=== PATIENT | male | born 1955 | race Hispanic/Latino ===

== ENCOUNTER 2022-01-13 08:45 | Outpatient (CLI) | payer SELFPAY | END 2022-01-13 08:46 | disposition home or self-care (01) | LOC: CSHWCC 08:45 | PROVIDERS: ATTEND Nurse Practitioner Family | DX: T87.89 Other complications of amputation stump (principal) | CPT/HCPCS: 99203; G0463 ==

== ENCOUNTER 2022-01-21 10:32 | Outpatient (CLI) | payer SELFPAY | END 2022-01-21 10:33 | disposition home or self-care (01) | LOC: CSHWCC 10:32 | PROVIDERS: ATTEND Nurse Practitioner Family | DX: T87.89 Other complications of amputation stump (principal) ==

== ENCOUNTER 2022-01-27 09:00 | Inpatient (IN) | payer MEDICARE, SELFPAY ==
[2022-01-27 09:35] LABS: #Basophils 0.1 10x3/uL (0.0-0.2); #Eosinphils 0.1 10x3/uL (0.0-0.5); #Monocytes 0.7 10x3/uL (0.0-1.1); #Neutrophils 9.6 10x3/uL (1.5-8.4); %Basophils 0.7 % (0.0-2.0); %Eosinophils 0.7 % (0.0-6.0); %Lymphocytes 30.1 % (18.0-47.0); %Monocytes 4.5 % (0.0-10.0); %Neutrophils 63.3 % (40.0-75.0); Hemoglobin 12.5 g/dL (13.5-17.5); Mean Corpuscular HGB CONC 33.2 g/dL (32.0-36.0); Mean Corpuscular Hemoglobin 29.1 pg (27.0-33.0); Mean Corpuscular Volume 87.7 fl (81.2-95.1); Platelet Count 455 10x3/uL (150-450); RBC Distribution Width 14.3 % (11.5-14.5); White Blood Cell (WBC) Count 15.2 10x3/uL (3.5-10.5)
[2022-01-27 09:43] LABS: ALT (SGPT) 25 U/L (8-55); AST (SGOT) 20 U/L (5-34); Albumin 3.5 g/dL (3.4-4.8); Alkaline Phosphatase 174 U/L (40-110); Anion Gap 18 mmol/L (10-20); BUN (Urea Nitrogen) 16 mg/dL (8.4-25.7); Bilirubin, Total 0.7 mg/dL (0.2-1.2); Calc. Creatinine Clearance 0 mL/min (70-130); Calcium 10.3 mg/dL (7.8-10.44); Carbon Dioxide 19 mmol/L (23-31); Chloride 103 mmol/L (98-107); Estimated GFR 96; Globulin 4.7 g/dL (2.4-3.5); Glucose 179 mg/dL (80-115); Protein, Total 8.2 g/dL (5.8-8.1); Sodium 136 mmol/L (136-145)
[2022-01-27] MEDS ORDERED: Cefepime 2 GM VIAL ONE (10:06)
[2022-01-27 10:31] LABS: Bilirubin Neg (Negative); Blood, Urine 25 (Negative); Clarity Clear (Clear); Glucose, Urine (Dipstick) Normal (Negative); Ketone, Urine Negative (Negative); Leukocyte Negative (Negative); Nitrite Negative (Negative); Protein, Urine (Dipstick) 30 mg/dl (Neg-Trace)
[2022-01-27 10:44] LABS: Bacteria/HPF Rare-Few HPF (None Seen); Mucous/LPF 1+ LPF (<2+); RBC/HPF 0-3 HPF (0-3); Squamous Epithelial None Seen HPF (0-3); WBC/HPF 0-3 HPF (0-3)
[2022-01-27 11:11] LABS: SARS-CoV-2 NAA Rapid Test Not Detected (NotDetected)
[2022-01-27] MEDS ORDERED: Dextrose 50% Abboject 50 ML SYRINGE SLOW IVP PRN (12:11)
[2022-01-27] MEDS ORDERED: Fentanyl 100 MCG/2 ML VIAL ONE (12:11)
[2022-01-27] MEDS: HYDROcodone/Acetaminophen 5/325 mg Tablet PO PRN ×2 (13:59→22:17)
[2022-01-27] MEDS ORDERED: Piperacillin/Tazobactam 3.375 GM in Sodium Chloride 0.9% 100 ML IVPB SCH (14:00)
[2022-01-27] MEDS: Nicotine 14 MG PATCH TD SCH (14:07)
[2022-01-27] MEDS ORDERED: Iopamidol 370 76% 100 ML VIAL ONE (14:45)
[2022-01-27 16:22] VITALS: BMI 19.9
[2022-01-27] MEDS: Morphine 2 MG/ML VIAL SLOW IVP PRN (19:04)
[2022-01-27] MEDS: Sodium Chloride 0.9% 1,000 ML IV SCH (19:04)
[2022-01-27] MEDS: Piperacillin/Tazobactam 3.375 GM in Sodium Chloride 0.9% 100 ML IVPB SCH (19:20)
[2022-01-27] MEDS: VANCOMYCIN HCL IVPB SCH (22:12)
[2022-01-27] MEDS: SODIUM CHLORIDE 0.9% IVPB SCH (22:12)
[2022-01-27] MEDS: Heparin 5,000 UNITS/ML VIAL SC SCH (22:13)
[2022-01-27] MEDS: Famotidine 20 MG TAB PO SCH (22:17)
[2022-01-27] MEDS: Lantus 1000 UNITS/10 ML VIAL SC SCH (23:34)
[2022-01-28] MEDS: Piperacillin/Tazobactam 3.375 GM in Sodium Chloride 0.9% 100 ML IVPB SCH ×3 (03:13→17:45)
[2022-01-28] MEDS: Morphine 2 MG/ML VIAL SLOW IVP PRN ×3 (03:32→22:19)
[2022-01-28] MEDS: Sodium Chloride 0.9% 1,000 ML IV SCH ×2 (03:39→13:13)
[2022-01-28 05:07] LABS: #Basophils 0.1 10x3/uL (0.0-0.2); #Eosinphils 0.2 10x3/uL (0.0-0.5); #Monocytes 0.5 10x3/uL (0.0-1.1); #Neutrophils 5.4 10x3/uL (1.5-8.4); %Basophils 0.9 % (0.0-2.0); %Lymphocytes 29.1 % (18.0-47.0); %Monocytes 5.6 % (0.0-10.0); %Neutrophils 61.9 % (40.0-75.0); Hemoglobin 10.3 g/dL (13.5-17.5); Mean Corpuscular HGB CONC 32.2 g/dL (32.0-36.0); Mean Corpuscular Hemoglobin 28.7 pg (27.0-33.0); Mean Corpuscular Volume 89.1 fl (81.2-95.1); Mean Platelet Volume 9.4 fl (7.4-10.4); Platelet Count 359 10x3/uL (150-450); Red Blood Cell (RBC) Count 3.59 10x6/uL (4.32-5.72); White Blood Cell (WBC) Count 8.7 10x3/uL (3.5-10.5)
[2022-01-28 05:29] LABS: Anion Gap 13 mmol/L (10-20); BUN (Urea Nitrogen) 14 mg/dL (8.4-25.7); Calc. Creatinine Clearance 76 mL/min (70-130); Carbon Dioxide 22 mmol/L (23-31); Chloride 109 mmol/L (98-107); Estimated GFR 101; Glucose 97 mg/dL (80-115); Potassium 3.9 mmol/L (3.5-5.1); Sodium 140 mmol/L (136-145)
[2022-01-28] MEDS: HYDROcodone/Acetaminophen 5/325 mg Tablet PO PRN ×2 (09:50→17:44)
[2022-01-28] MEDS: Famotidine 20 MG TAB PO SCH ×2 (09:51→21:35)
[2022-01-28] MEDS: Heparin 5,000 UNITS/ML VIAL SC SCH ×2 (09:53→21:34)
[2022-01-28] MEDS: SODIUM CHLORIDE 0.9% IVPB SCH ×2 (09:53→21:35)
[2022-01-28] MEDS: VANCOMYCIN HCL IVPB SCH ×2 (09:53→21:35)
[2022-01-28] MEDS: Nicotine 14 MG PATCH TD SCH (15:19)
[2022-01-28 21:28] LABS: Vancomycin, Trough 18.1 ug/mL
[2022-01-28] MEDS: Atorvastatin Calcium 40 MG TAB PO SCH (21:34)
[2022-01-28] MEDS: Lantus 1000 UNITS/10 ML VIAL SC SCH (21:36)
[2022-01-29] MEDS: Piperacillin/Tazobactam 3.375 GM in Sodium Chloride 0.9% 100 ML IVPB SCH ×3 (02:54→18:10)
[2022-01-29] MEDS: Sodium Chloride 0.9% 1,000 ML IV SCH ×2 (03:28→18:10)
[2022-01-29] MEDS: Morphine 2 MG/ML VIAL SLOW IVP PRN ×2 (04:26→10:27)
[2022-01-29 05:11] LABS: Anion Gap 12 mmol/L (10-20); BUN (Urea Nitrogen) 9 mg/dL (8.4-25.7); Calc. Creatinine Clearance 82 mL/min (70-130); Calcium 8.7 mg/dL (7.8-10.44); Carbon Dioxide 22 mmol/L (23-31); Chloride 111 mmol/L (98-107); Estimated GFR 103; Glucose 101 mg/dL (80-115); Potassium 3.6 mmol/L (3.5-5.1); Sodium 141 mmol/L (136-145)
[2022-01-29 05:25] LABS: #Basophils 0.1 10x3/uL (0.0-0.2); #Eosinphils 0.2 10x3/uL (0.0-0.5); #Monocytes 0.4 10x3/uL (0.0-1.1); #Neutrophils 4.7 10x3/uL (1.5-8.4); %Basophils 0.7 % (0.0-2.0); %Eosinophils 1.8 % (0.0-6.0); %Lymphocytes 34.3 % (18.0-47.0); %Monocytes 5.4 % (0.0-10.0); %Neutrophils 57.4 % (40.0-75.0); Hemoglobin 9.6 g/dL (13.5-17.5); Mean Corpuscular Hemoglobin 29.5 pg (27.0-33.0); Mean Corpuscular Volume 86.8 fl (81.2-95.1); Mean Platelet Volume 9.9 fl (7.4-10.4); Platelet Count 333 10x3/uL (150-450); RBC Distribution Width 14.3 % (11.5-14.5); Red Blood Cell (RBC) Count 3.25 10x6/uL (4.32-5.72); White Blood Cell (WBC) Count 8.2 10x3/uL (3.5-10.5)
[2022-01-29] MEDS: Heparin 5,000 UNITS/ML VIAL SC SCH ×2 (08:55→21:23)
[2022-01-29] MEDS: HYDROcodone/Acetaminophen 5/325 mg Tablet PO PRN ×3 (08:56→21:29)
[2022-01-29] MEDS: Famotidine 20 MG TAB PO SCH ×2 (08:56→21:23)
[2022-01-29] MEDS: Aspirin 81 mg Enteric Coated Tablet PO SCH (08:56)
[2022-01-29] MEDS: Vancomycin HCl 1 GM in Sodium Chloride 0.9% 250 ML 250 ML IVPB SCH ×2 (08:57→21:27)
[2022-01-29] MEDS: Nicotine 14 MG PATCH TD SCH (13:43)
[2022-01-29] MEDS: Lantus 1000 UNITS/10 ML VIAL SC SCH (21:10)
[2022-01-29] MEDS: Atorvastatin Calcium 40 MG TAB PO SCH (21:22)
[2022-01-30] MEDS: Piperacillin/Tazobactam 3.375 GM in Sodium Chloride 0.9% 100 ML IVPB SCH ×2 (02:48→11:40)
[2022-01-30] MEDS: Morphine 2 MG/ML VIAL SLOW IVP PRN ×4 (03:59→22:13)
[2022-01-30 04:00] LABS: #Basophils 0.1 10x3/uL (0.0-0.2); #Eosinphils 0.2 10x3/uL (0.0-0.5); #Monocytes 0.4 10x3/uL (0.0-1.1); #Neutrophils 3.3 10x3/uL (1.5-8.4); %Basophils 0.9 % (0.0-2.0); %Eosinophils 3.2 % (0.0-6.0); %Lymphocytes 41.9 % (18.0-47.0); %Monocytes 5.8 % (0.0-10.0); %Neutrophils 47.8 % (40.0-75.0); Hemoglobin 9.4 g/dL (13.5-17.5); Mean Corpuscular HGB CONC 32.4 g/dL (32.0-36.0); Mean Corpuscular Hemoglobin 28.8 pg (27.0-33.0); Mean Platelet Volume 10.1 fl (7.4-10.4); Platelet Count 322 10x3/uL (150-450); RBC Distribution Width 14.2 % (11.5-14.5); Red Blood Cell (RBC) Count 3.26 10x6/uL (4.32-5.72); White Blood Cell (WBC) Count 6.9 10x3/uL (3.5-10.5)
[2022-01-30] MEDS: Sodium Chloride 0.9% 1,000 ML IV SCH (04:00)
[2022-01-30 04:13] LABS: Anion Gap 13 mmol/L (10-20); BUN (Urea Nitrogen) 9 mg/dL (8.4-25.7); Calc. Creatinine Clearance 86 mL/min (70-130); Calcium 8.6 mg/dL (7.8-10.44); Carbon Dioxide 21 mmol/L (23-31); Chloride 111 mmol/L (98-107); Estimated GFR 105; Glucose 113 mg/dL (80-115); Potassium 3.6 mmol/L (3.5-5.1); Sodium 141 mmol/L (136-145)
[2022-01-30] MEDS: Aspirin 81 mg Enteric Coated Tablet PO SCH (07:39)
[2022-01-30] MEDS: Heparin 5,000 UNITS/ML VIAL SC SCH ×2 (07:39→21:32)
[2022-01-30] MEDS: Famotidine 20 MG TAB PO SCH ×2 (07:39→21:30)
[2022-01-30] MEDS ORDERED: Bupivacaine PF 0.5% 30 ML VIAL ONE (07:43)
[2022-01-30] MEDS ORDERED: EPINEPHrine 1 MG/ML AMP ONE (07:43)
[2022-01-30] MEDS ORDERED: PROPOFOL 20 ML ONE (08:10)
[2022-01-30] MEDS ORDERED: Lidocaine 1% PF 5 ML VIAL ONE (08:10)
[2022-01-30] MEDS ORDERED: Ondansetron PF 4 MG/2 ML Vial ONE (08:10)
[2022-01-30] MEDS ORDERED: Fentanyl 100 MCG/2 ML VIAL ONE ×2 (08:10→08:37)
[2022-01-30] MEDS ORDERED: PHENYLEPHRINE-NS 100 MCG/ML 10 ML SYRINGE ONE (08:18)
[2022-01-30] MEDS ORDERED: ePHEDrine Sulfate 50 MG/10 ML VIAL ONE (08:21)
[2022-01-30] MEDS ORDERED: Esmolol 100 MG/10 ML VIAL ONE (10:10)
[2022-01-30] MEDS: Vancomycin HCl 1 GM in Sodium Chloride 0.9% 250 ML 250 ML IVPB SCH (10:57)
[2022-01-30] MEDS: HYDROcodone/Acetaminophen 5/325 mg Tablet PO PRN ×3 (11:42→21:30)
[2022-01-30 12:31] LABS: Hemoglobin A1c 7.8 % (4.0-6.0)
[2022-01-30] MEDS: Nicotine 14 MG PATCH TD SCH (14:43)
[2022-01-30] MEDS: Atorvastatin Calcium 40 MG TAB PO SCH (21:30)
[2022-01-30] MEDS: Amlodipine 5 MG TAB PO SCH (21:31)
[2022-01-30] MEDS: Lantus 1000 UNITS/10 ML VIAL SC SCH (21:32)
[2022-01-30 21:49] LABS: Vancomycin, Trough 22.1 ug/mL
[2022-01-31] MEDS: Morphine 2 MG/ML VIAL SLOW IVP PRN ×4 (04:08→16:50)
[2022-01-31 05:30] LABS: #Eosinphils 0.3 10x3/uL (0.0-0.5); #Monocytes 0.4 10x3/uL (0.0-1.1); #Neutrophils 3.8 10x3/uL (1.5-8.4); %Basophils 0.6 % (0.0-2.0); %Eosinophils 3.7 % (0.0-6.0); %Lymphocytes 34.4 % (18.0-47.0); %Monocytes 5.6 % (0.0-10.0); %Neutrophils 55.4 % (40.0-75.0); Mean Corpuscular HGB CONC 32.8 g/dL (32.0-36.0); Mean Corpuscular Hemoglobin 28.9 pg (27.0-33.0); Mean Corpuscular Volume 88.1 fl (81.2-95.1); Mean Platelet Volume 9.9 fl (7.4-10.4); Platelet Count 274 10x3/uL (150-450); RBC Distribution Width 14.7 % (11.5-14.5); Red Blood Cell (RBC) Count 3.11 10x6/uL (4.32-5.72); White Blood Cell (WBC) Count 6.9 10x3/uL (3.5-10.5)
[2022-01-31 05:50] LABS: ALT (SGPT) 9 U/L (8-55); AST (SGOT) 12 U/L (5-34); Albumin 2.6 g/dL (3.4-4.8); Alkaline Phosphatase 112 U/L (40-110); Anion Gap 11 mmol/L (10-20); BUN (Urea Nitrogen) 5 mg/dL (8.4-25.7); Bilirubin, Direct 0.3 mg/dL (0.1-0.3); Bilirubin, Total 0.5 mg/dL (0.2-1.2); CRP (Inflammatory) 3.11 mg/dL (= or < 0.5); Calc. Creatinine Clearance 97 mL/min (70-130); Calcium 8.6 mg/dL (7.8-10.44); Carbon Dioxide 23 mmol/L (23-31); Cardiac Risk 4.3 (Less than 4.5); Chloride 111 mmol/L (98-107); Cholesterol 73 mg/dl (< 200 Desired); Estimated GFR 109; Glucose 110 mg/dL (80-115); HDL Cholesterol 17 mg/dL (>60 Neg Risk); LDL Cholesterol, Calculated 29 mg/dL; Magnesium 1.9 mg/dL (1.6-2.6); Potassium 3.7 mmol/L (3.5-5.1); Protein, Total 5.7 g/dL (5.8-8.1); Sodium 141 mmol/L (136-145); Triglycerides 135 mg/dL (Less than 150)
[2022-01-31] MEDS: Senokot S 8.6-50 MG TAB PO PRN (07:59)
[2022-01-31] MEDS: Aspirin 81 mg Enteric Coated Tablet PO SCH (07:59)
[2022-01-31] MEDS: Heparin 5,000 UNITS/ML VIAL SC SCH ×2 (07:59→20:14)
[2022-01-31] MEDS: Famotidine 20 MG TAB PO SCH ×2 (07:59→20:09)
[2022-01-31] MEDS: Lisinopril 20 MG TAB PO SCH (07:59)
[2022-01-31] MEDS: Hydrochlorothiazide 25 MG TAB PO SCH (07:59)
[2022-01-31] MEDS ORDERED: [UNRECOGNIZED DRUG - OTHER] PO SCH (09:00)
[2022-01-31] MEDS ORDERED: HYDROCHLOROTHIAZIDE PO SCH (09:00)
[2022-01-31] MEDS ORDERED: LISINOPRIL PO SCH (09:00)
[2022-01-31] MEDS: HYDROcodone/Acetaminophen 5/325 mg Tablet PO PRN ×2 (10:01→20:07)
[2022-01-31] MEDS: Nicotine 14 MG PATCH TD SCH (14:50)
[2022-01-31] MEDS: Atorvastatin Calcium 40 MG TAB PO SCH (20:09)
[2022-01-31] MEDS: Amlodipine 5 MG TAB PO SCH (20:14)
[2022-01-31] MEDS: Lantus 1000 UNITS/10 ML VIAL SC SCH (20:22)
[2022-02-01] MEDS: HYDROcodone/Acetaminophen 5/325 mg Tablet PO PRN ×3 (00:19→20:04)
[2022-02-01 05:03] LABS: #Basophils 0.1 10x3/uL (0.0-0.2); #Eosinphils 0.3 10x3/uL (0.0-0.5); #Monocytes 0.5 10x3/uL (0.0-1.1); #Neutrophils 4.1 10x3/uL (1.5-8.4); %Basophils 0.7 % (0.0-2.0); %Eosinophils 3.2 % (0.0-6.0); %Lymphocytes 40.3 % (18.0-47.0); %Monocytes 5.5 % (0.0-10.0); %Neutrophils 49.8 % (40.0-75.0); Hemoglobin 9.8 g/dL (13.5-17.5); Mean Corpuscular HGB CONC 32.8 g/dL (32.0-36.0); Mean Corpuscular Hemoglobin 29.1 pg (27.0-33.0); Mean Corpuscular Volume 88.7 fl (81.2-95.1); Mean Platelet Volume 10.5 fl (7.4-10.4); Platelet Count 312 10x3/uL (150-450); RBC Distribution Width 14.6 % (11.5-14.5); Red Blood Cell (RBC) Count 3.37 10x6/uL (4.32-5.72); White Blood Cell (WBC) Count 8.3 10x3/uL (3.5-10.5)
[2022-02-01 05:31] LABS: Anion Gap 14 mmol/L (10-20); BUN (Urea Nitrogen) 7 mg/dL (8.4-25.7); Calc. Creatinine Clearance 89 mL/min (70-130); Calcium 9.2 mg/dL (7.8-10.44); Carbon Dioxide 23 mmol/L (23-31); Chloride 107 mmol/L (98-107); Estimated GFR 106; Glucose 110 mg/dL (80-115); Magnesium 2.1 mg/dL (1.6-2.6); Potassium 3.5 mmol/L (3.5-5.1); Sodium 140 mmol/L (136-145)
[2022-02-01] MEDS: Heparin 5,000 UNITS/ML VIAL SC SCH ×2 (09:21→20:03)
[2022-02-01] MEDS: Hydrochlorothiazide 25 MG TAB PO SCH (09:21)
[2022-02-01] MEDS: Lisinopril 20 MG TAB PO SCH (09:21)
[2022-02-01] MEDS: Famotidine 20 MG TAB PO SCH ×2 (09:21→20:06)
[2022-02-01] MEDS: Aspirin 81 mg Enteric Coated Tablet PO SCH (09:21)
[2022-02-01] MEDS: oxyCODONE 5 MG TAB PO PRN ×2 (12:19→17:26)
[2022-02-01] MEDS: Nicotine 14 MG PATCH TD SCH (14:57)
[2022-02-01] MEDS: Atorvastatin Calcium 40 MG TAB PO SCH (20:04)
[2022-02-01] MEDS: Amlodipine 5 MG TAB PO SCH (20:06)
[2022-02-01] MEDS: Lantus 1000 UNITS/10 ML VIAL SC SCH (20:07)
[2022-02-02] MEDS: Senokot S 8.6-50 MG TAB PO PRN ×2 (05:50→08:47)
[2022-02-02] MEDS: HYDROcodone/Acetaminophen 5/325 mg Tablet PO PRN ×3 (05:53→20:06)
[2022-02-02] MEDS: Heparin 5,000 UNITS/ML VIAL SC SCH ×2 (08:46→20:06)
[2022-02-02] MEDS: Aspirin 81 mg Enteric Coated Tablet PO SCH (08:48)
[2022-02-02] MEDS: Hydrochlorothiazide 25 MG TAB PO SCH (08:48)
[2022-02-02] MEDS: Famotidine 20 MG TAB PO SCH ×2 (08:48→20:06)
[2022-02-02] MEDS: Lisinopril 20 MG TAB PO SCH (08:48)
[2022-02-02] MEDS: Nicotine 14 MG PATCH TD SCH (13:43)
[2022-02-02] MEDS: Senokot S 8.6-50 MG TAB PO SCH (20:06)
[2022-02-02] MEDS: Polyethylene Glycol 3350 17 GM Packet PO SCH (20:06)
[2022-02-02] MEDS: Atorvastatin Calcium 40 MG TAB PO SCH (20:06)
[2022-02-02] MEDS: Amlodipine 5 MG TAB PO SCH (20:08)
[2022-02-02] MEDS: Lantus 1000 UNITS/10 ML VIAL SC SCH (20:17)
[2022-02-03] MEDS: Ondansetron ODT 4 MG TAB PO PRN (07:09)
[2022-02-03] MEDS: Senokot S 8.6-50 MG TAB PO SCH ×2 (08:40→21:03)
[2022-02-03] MEDS: HYDROcodone/Acetaminophen 5/325 mg Tablet PO PRN (08:40)
[2022-02-03] MEDS: Polyethylene Glycol 3350 17 GM Packet PO SCH ×2 (08:40→21:03)
[2022-02-03] MEDS: Hydrochlorothiazide 25 MG TAB PO SCH (08:41)
[2022-02-03] MEDS: Aspirin 81 mg Enteric Coated Tablet PO SCH (08:41)
[2022-02-03] MEDS: Heparin 5,000 UNITS/ML VIAL SC SCH ×2 (08:41→20:57)
[2022-02-03] MEDS: Famotidine 20 MG TAB PO SCH ×2 (08:41→20:57)
[2022-02-03] MEDS: Lisinopril 20 MG TAB PO SCH (08:41)
[2022-02-03] MEDS: HumaLOG 300 UNITS/3 ML VIAL SC PRN (11:53)
[2022-02-03 14:21] LABS: Bilirubin Neg (Negative); Blood, Urine Negative (Negative); Clarity Clear (Clear); Glucose, Urine (Dipstick) Normal (Negative); Ketone, Urine 15 mg/dL (Negative); Leukocyte Negative (Negative); Nitrite Negative (Negative); Protein, Urine (Dipstick) Negative (Neg-Trace)
[2022-02-03 14:25] LABS: Urine Culture Reflex No No
[2022-02-03 14:37] LABS: Bacteria/HPF None Seen HPF (None Seen); RBC/HPF 0-3 HPF (0-3); Squamous Epithelial 0-3 HPF (0-3); WBC/HPF 0-3 HPF (0-3)
[2022-02-03] MEDS: Nicotine 14 MG PATCH TD SCH (14:57)
[2022-02-03] MEDS: Ketorolac Tromethamine 30 MG/ML VIAL IVP PRN (15:41)
[2022-02-03] MEDS: Amlodipine 5 MG TAB PO SCH (20:56)
[2022-02-03] MEDS: Tamsulosin HCl 0.4 MG CAP PO SCH (20:56)
[2022-02-03] MEDS: Atorvastatin Calcium 40 MG TAB PO SCH (20:57)
[2022-02-03] MEDS: Lantus 1000 UNITS/10 ML VIAL SC SCH (20:58)
[2022-02-04] MEDS: Polyethylene Glycol 3350 17 GM Packet PO SCH ×2 (08:26→21:20)
[2022-02-04] MEDS: Aspirin 81 mg Enteric Coated Tablet PO SCH (08:27)
[2022-02-04] MEDS: Famotidine 20 MG TAB PO SCH ×2 (08:27→20:59)
[2022-02-04] MEDS: Senokot S 8.6-50 MG TAB PO SCH ×2 (08:27→21:21)
[2022-02-04] MEDS: Heparin 5,000 UNITS/ML VIAL SC SCH ×2 (08:27→21:01)
[2022-02-04] MEDS: Hydrochlorothiazide 25 MG TAB PO SCH (09:00)
[2022-02-04] MEDS: Lisinopril 20 MG TAB PO SCH (09:00)
[2022-02-04] MEDS ORDERED: Milk Of Magnesia 30 ML UDCUP PO SCH (13:00)
[2022-02-04] MEDS ORDERED: Fleet Enema 133 ML BOT PR SCH (13:00)
[2022-02-04] MEDS ORDERED: Fleet Enema 133 ML BOT ONE ×2 (13:04)
[2022-02-04] MEDS: Acetaminophen 325 MG TAB PO PRN ×2 (14:48→21:00)
[2022-02-04] MEDS: Nicotine 14 MG PATCH TD SCH ×2 (15:22→15:30)
[2022-02-04] MEDS: Ketorolac Tromethamine 30 MG/ML VIAL IVP PRN (17:57)
[2022-02-04] MEDS: Atorvastatin Calcium 40 MG TAB PO SCH (20:59)
[2022-02-04] MEDS: Tamsulosin HCl 0.4 MG CAP PO SCH (21:00)
[2022-02-04] MEDS: Lantus 1000 UNITS/10 ML VIAL SC SCH (21:01)
[2022-02-05] MEDS ORDERED: Bisacodyl 10 MG SUPP PR SCH ×2 (03:30→20:00)
[2022-02-05] MEDS: Ketorolac Tromethamine 30 MG/ML VIAL IVP PRN (03:36)
[2022-02-05] MEDS ORDERED: Iopamidol 370 76% 100 ML VIAL ONE (08:00)
[2022-02-05] MEDS ORDERED: Sodium Chloride 0.9% 1,000 ML IV SCH ×2 (08:30→09:00)
[2022-02-05 08:37] LABS: Actual Bicarbonate (HCO3v) 25 mEq/L (22-28); Base Excess 2.5 mEq/L (-2.0 to +3.0); Calcium, Ionized (venous) 1.13 mmol/L (1.16-1.32); Chloride (VBG) 103 mmol/L (98-106); Hemoglobin (Hb) 10.9 g/dL (12.6-17.4); Potassium (VBG) 3.88 mmol/L (3.70-5.30); Puncture Site Other Site; RapidComm Collect By LAB; pH (venous) 7.52 (7.32-7.43)
[2022-02-05 09:01] LABS: Hemoglobin 10.3 g/dL (13.5-17.5); MDiff Complete? YES; Mean Corpuscular HGB CONC 34.6 g/dL (32.0-36.0); Mean Corpuscular Hemoglobin 29.4 pg (27.0-33.0); Mean Corpuscular Volume 85.1 fl (81.2-95.1); Mean Platelet Volume 11.1 fl (7.4-10.4); Platelet Count 342 10x3/uL (150-450); RBC Distribution Width 15.5 % (11.5-14.5); White Blood Cell (WBC) Count 24.2 10x3/uL (3.5-10.5)
[2022-02-05 09:06] LABS: PTT 33.2 sec (22.0-33.0); Prothrombin Time 10.6 sec (9.5-12.1)
[2022-02-05 09:08] LABS: ALT (SGPT) 18 U/L (8-55); AST (SGOT) 22 U/L (5-34); Albumin 3.3 g/dL (3.4-4.8); Alkaline Phosphatase 138 U/L (40-110); Anion Gap 18 mmol/L (10-20); BUN (Urea Nitrogen) 26 mg/dL (8.4-25.7); Bilirubin, Total 1.3 mg/dL (0.2-1.2); Calc. Creatinine Clearance 58 mL/min (70-130); Carbon Dioxide 23 mmol/L (23-31); Chloride 101 mmol/L (98-107); Estimated GFR 91; Globulin 3.5 g/dL (2.4-3.5); Glucose 177 mg/dL (80-115); Magnesium 2.3 mg/dL (1.6-2.6); Potassium 4.2 mmol/L (3.5-5.1); Protein, Total 6.8 g/dL (5.8-8.1); Sodium 138 mmol/L (136-145)
[2022-02-05 09:11] LABS: Troponin I Less than 0.010 ng/mL (< 0.028)
[2022-02-05 09:20] LABS: Band 1 % (5-11); Lymphocytes 9 % (21-51); Monocytes 3 % (0-10); Neutrophil 87 % (42-75)
[2022-02-05 09:21] LABS: Platelet Morphology Comment Appears Adequate; RBC Morphology Normal
[2022-02-05] MEDS: Polyethylene Glycol 3350 17 GM Packet PO SCH ×2 (10:27→22:41)
[2022-02-05] MEDS: Senokot S 8.6-50 MG TAB PO SCH ×2 (10:28→22:41)
[2022-02-05] MEDS: Sodium Chloride 0.9% 1,000 ML IV SCH ×2 (10:40→22:48)
[2022-02-05] MEDS ORDERED: Vancomycin 1 GM in Premix Bag 1 BAG IVPB SCH (10:47)
[2022-02-05] MEDS ORDERED: Vancomycin HCl 1 GM in Sodium Chloride 0.9% 250 ML 250 ML IVPB SCH (11:30)
[2022-02-05] MEDS ORDERED: Sodium Chloride 0.9% 100 ML ONE (12:02)
[2022-02-05] MEDS ORDERED: Cefepime 2 GM VIAL ONE ×2 (12:02→23:10)
[2022-02-05] MEDS: Cefepime 2 GM in Sodium Chloride 0.9% 100 ML IVPB SCH ×2 (12:04→23:34)
[2022-02-05] MEDS: metroNIDAZOLE 500 MG in Premix Bag 1 BAG IVPB SCH ×2 (12:06→19:52)
[2022-02-05] MEDS: Heparin 5,000 UNITS/ML VIAL SC SCH ×2 (12:39→20:03)
[2022-02-05] MEDS: Famotidine 20 MG TAB PO SCH ×2 (14:58→20:02)
[2022-02-05] MEDS: Aspirin 81 mg Enteric Coated Tablet PO SCH (15:36)
[2022-02-05] MEDS: Nicotine 14 MG PATCH TD SCH ×2 (15:39→15:46)
[2022-02-05] MEDS ORDERED: HYDROmorphone 0.5 MG/0.5 ML SYRINGE SLOW IVP SCH (16:00)
[2022-02-05] MEDS ORDERED: Bisacodyl 5 MG TAB PO SCH (20:00)
[2022-02-05] MEDS: Atorvastatin Calcium 40 MG TAB PO SCH (20:02)
[2022-02-05] MEDS: Lantus 1000 UNITS/10 ML VIAL SC SCH (22:40)
[2022-02-05] MEDS ORDERED: Vancomycin HCl 500 MG in Sodium Chloride 0.9% 100 ML IVPB SCH (23:30)
[2022-02-06] MEDS: metroNIDAZOLE 500 MG in Premix Bag 1 BAG IVPB SCH ×3 (03:14→21:23)
[2022-02-06 05:48] LABS: Mean Corpuscular Volume 87.5 fl (81.2-95.1)
[2022-02-06 05:49] LABS: #Basophils 0.1 10x3/uL (0.0-0.2); #Monocytes 1.2 10x3/uL (0.0-1.1); #Neutrophils 15.6 10x3/uL (1.5-8.4); %Basophils 0.3 % (0.0-2.0); %Eosinophils 0.1 % (0.0-6.0); %Lymphocytes 13.4 % (18.0-47.0); %Monocytes 6.2 % (0.0-10.0); %Neutrophils 79.2 % (40.0-75.0); Hemoglobin 8.4 g/dL (13.5-17.5); Mean Platelet Volume 10.9 fl (7.4-10.4); Platelet Count 307 10x3/uL (150-450); RBC Distribution Width 15.6 % (11.5-14.5); White Blood Cell (WBC) Count 19.7 10x3/uL (3.5-10.5)
[2022-02-06 05:57] LABS: ALT (SGPT) 15 U/L (8-55); AST (SGOT) 17 U/L (5-34); Albumin 2.7 g/dL (3.4-4.8); Alkaline Phosphatase 108 U/L (40-110); Anion Gap 12 mmol/L (10-20); BUN (Urea Nitrogen) 20 mg/dL (8.4-25.7); Bilirubin, Total 0.7 mg/dL (0.2-1.2); Calc. Creatinine Clearance 89 mL/min (70-130); Calcium 8.4 mg/dL (7.8-10.44); Carbon Dioxide 21 mmol/L (23-31); Chloride 107 mmol/L (98-107); Estimated GFR 106; Globulin 3.2 g/dL (2.4-3.5); Glucose 123 mg/dL (80-115); Magnesium 2.2 mg/dL (1.6-2.6); Potassium 3.7 mmol/L (3.5-5.1); Protein, Total 5.9 g/dL (5.8-8.1); Sodium 136 mmol/L (136-145)
[2022-02-06] MEDS: Sodium Chloride 0.9% 1,000 ML IV SCH ×2 (06:46→21:14)
[2022-02-06] MEDS: Heparin 5,000 UNITS/ML VIAL SC SCH ×2 (10:18→21:15)
[2022-02-06] MEDS: Aspirin 81 mg Enteric Coated Tablet PO SCH (10:18)
[2022-02-06] MEDS: Famotidine 20 MG TAB PO SCH ×2 (10:18→21:15)
[2022-02-06] MEDS: Senokot S 8.6-50 MG TAB PO SCH ×2 (10:19→23:00)
[2022-02-06] MEDS: Polyethylene Glycol 3350 17 GM Packet PO SCH ×2 (10:19→21:19)
[2022-02-06] MEDS: Cefepime 2 GM in Sodium Chloride 0.9% 100 ML IVPB SCH ×2 (10:25→23:03)
[2022-02-06] MEDS: Vancomycin HCl 750 MG in Sodium Chloride 0.9% 250 ML 250 ML IVPB SCH ×2 (10:26→23:45)
[2022-02-06] MEDS: Nicotine 14 MG PATCH TD SCH (11:06)
[2022-02-06] MEDS: Atorvastatin Calcium 40 MG TAB PO SCH (21:15)
[2022-02-06] MEDS: Lantus 1000 UNITS/10 ML VIAL SC SCH (21:16)
[2022-02-06] MEDS: Acetaminophen 325 MG TAB PO PRN (21:17)
[2022-02-07] MEDS: Sodium Chloride 0.9% 1,000 ML IV SCH ×3 (02:37→21:07)
[2022-02-07] MEDS: metroNIDAZOLE 500 MG in Premix Bag 1 BAG IVPB SCH ×2 (04:02→12:20)
[2022-02-07] MEDS: Acetaminophen 325 MG TAB PO PRN ×4 (05:22→21:14)
[2022-02-07 06:00] LABS: #Eosinphils 0.1 10x3/uL (0.0-0.5); #Monocytes 0.4 10x3/uL (0.0-1.1); %Basophils 0.3 % (0.0-2.0); %Eosinophils 0.6 % (0.0-6.0); %Lymphocytes 10.2 % (18.0-47.0); %Monocytes 3.9 % (0.0-10.0); %Neutrophils 84.5 % (40.0-75.0); Hemoglobin 8.5 g/dL (13.5-17.5); Mean Corpuscular Hemoglobin 29.4 pg (27.0-33.0); Mean Corpuscular Volume 86.5 fl (81.2-95.1); Mean Platelet Volume 11.6 fl (7.4-10.4); Platelet Count 282 10x3/uL (150-450); RBC Distribution Width 15.8 % (11.5-14.5); Red Blood Cell (RBC) Count 2.89 10x6/uL (4.32-5.72); White Blood Cell (WBC) Count 9.5 10x3/uL (3.5-10.5)
[2022-02-07 06:02] LABS: ALT (SGPT) 12 U/L (8-55); AST (SGOT) 19 U/L (5-34); Albumin 2.5 g/dL (3.4-4.8); Alkaline Phosphatase 104 U/L (40-110); Anion Gap 11 mmol/L (10-20); BUN (Urea Nitrogen) 13 mg/dL (8.4-25.7); Bilirubin, Total 0.7 mg/dL (0.2-1.2); Calc. Creatinine Clearance 104 mL/min (70-130); Calcium 8.1 mg/dL (7.8-10.44); Carbon Dioxide 20 mmol/L (23-31); Chloride 112 mmol/L (98-107); Estimated GFR 111; Globulin 3.1 g/dL (2.4-3.5); Glucose 93 mg/dL (80-115); Magnesium 2.2 mg/dL (1.6-2.6); Protein, Total 5.6 g/dL (5.8-8.1); Sodium 140 mmol/L (136-145)
[2022-02-07] MEDS: Aspirin 81 mg Enteric Coated Tablet PO SCH (09:44)
[2022-02-07] MEDS: Famotidine 20 MG TAB PO SCH ×2 (09:44→21:05)
[2022-02-07] MEDS: Heparin 5,000 UNITS/ML VIAL SC SCH ×2 (09:45→21:05)
[2022-02-07] MEDS: Polyethylene Glycol 3350 17 GM Packet PO SCH ×2 (10:20→21:06)
[2022-02-07] MEDS: Senokot S 8.6-50 MG TAB PO SCH ×2 (10:20→21:06)
[2022-02-07] MEDS: Cefepime 2 GM in Sodium Chloride 0.9% 100 ML IVPB SCH ×2 (12:20→22:25)
[2022-02-07] MEDS ORDERED: Potassium Chloride 20 MEQ TAB PO SCH (13:00)
[2022-02-07] MEDS: Nicotine 14 MG PATCH TD SCH (14:41)
[2022-02-07] MEDS ORDERED: Lidocaine 5% Patch TD SCH (18:00)
[2022-02-07] MEDS: Atorvastatin Calcium 40 MG TAB PO SCH (21:05)
[2022-02-07] MEDS: Lantus 1000 UNITS/10 ML VIAL SC SCH (21:06)
[2022-02-08 05:10] LABS: #Monocytes 0.5 10x3/uL (0.0-1.1); #Neutrophils 4.4 10x3/uL (1.5-8.4); %Basophils 0.2 % (0.0-2.0); %Eosinophils 0.5 % (0.0-6.0); %Lymphocytes 23.6 % (18.0-47.0); %Monocytes 7.5 % (0.0-10.0); %Neutrophils 67.6 % (40.0-75.0); Hemoglobin 8.4 g/dL (13.5-17.5); Mean Corpuscular HGB CONC 33.7 g/dL (32.0-36.0); Mean Corpuscular Volume 85.9 fl (81.2-95.1); Mean Platelet Volume 10.8 fl (7.4-10.4); Platelet Count 291 10x3/uL (150-450); RBC Distribution Width 15.5 % (11.5-14.5); White Blood Cell (WBC) Count 6.5 10x3/uL (3.5-10.5)
[2022-02-08 05:30] LABS: ALT (SGPT) 18 U/L (8-55); AST (SGOT) 50 U/L (5-34); Albumin 2.6 g/dL (3.4-4.8); Alkaline Phosphatase 132 U/L (40-110); Anion Gap 9 mmol/L (10-20); BUN (Urea Nitrogen) 7 mg/dL (8.4-25.7); Bilirubin, Total 0.5 mg/dL (0.2-1.2); Calc. Creatinine Clearance 98 mL/min (70-130); Calcium 8.1 mg/dL (7.8-10.44); Carbon Dioxide 23 mmol/L (23-31); Chloride 107 mmol/L (98-107); Estimated GFR 109; Globulin 3.1 g/dL (2.4-3.5); Glucose 111 mg/dL (80-115); Magnesium 1.9 mg/dL (1.6-2.6); Protein, Total 5.7 g/dL (5.8-8.1); Sodium 136 mmol/L (136-145)
[2022-02-08 05:32] LABS: Potassium 2.8 mmol/L (3.5-5.1)
[2022-02-08] MEDS: Acetaminophen 325 MG TAB PO PRN ×2 (05:54→14:45)
[2022-02-08] MEDS ORDERED: LIDOCAINE Patch Removal TOP SCH (06:00)
[2022-02-08] MEDS: Potassium Chloride 20 MEQ TAB PO SCH ×2 (06:31→09:43)
[2022-02-08] MEDS: Sodium Chloride 0.9% 1,000 ML IV SCH ×2 (08:55→18:38)
[2022-02-08] MEDS ORDERED: Lidocaine 5% Patch TD SCH (09:00)
[2022-02-08] MEDS: Aspirin 81 mg Enteric Coated Tablet PO SCH (09:43)
[2022-02-08] MEDS: Famotidine 20 MG TAB PO SCH ×2 (09:43→20:26)
[2022-02-08] MEDS: Senokot S 8.6-50 MG TAB PO SCH ×2 (09:43→21:18)
[2022-02-08] MEDS: Heparin 5,000 UNITS/ML VIAL SC SCH ×2 (09:43→20:43)
[2022-02-08] MEDS: Polyethylene Glycol 3350 17 GM Packet PO SCH ×2 (09:43→21:18)
[2022-02-08 11:40] LABS: Bilirubin Neg (Negative); Blood, Urine 150 (Negative); Clarity Clear (Clear); Glucose, Urine (Dipstick) Normal (Negative); Ketone, Urine Negative (Negative); Leukocyte 100 (Negative); Nitrite Negative (Negative); Protein, Urine (Dipstick) Negative (Neg-Trace); Specific Gravity, Urine 1.005 (1.002-1.036); Urobilinogen Normal mg/dL (Less than 2)
[2022-02-08 12:03] LABS: Bacteria/HPF None Seen HPF (None Seen); Transitional Epithelial 0-3 HPF (None Seen)
[2022-02-08 12:05] LABS: Urine Culture Reflex No No
[2022-02-08] MEDS: Cefepime 2 GM in Sodium Chloride 0.9% 100 ML IVPB SCH ×2 (12:33→22:37)
[2022-02-08] MEDS: Morphine 2 MG/ML VIAL SLOW IVP PRN ×2 (14:45→18:40)
[2022-02-08] MEDS: Nicotine 14 MG PATCH TD SCH (14:46)
[2022-02-08] MEDS: Atorvastatin Calcium 40 MG TAB PO SCH (20:26)
[2022-02-08] MEDS: Lantus 1000 UNITS/10 ML VIAL SC SCH (21:17)
[2022-02-09] MEDS: Morphine 2 MG/ML VIAL SLOW IVP PRN ×5 (00:09→23:38)
[2022-02-09] MEDS: Micafungin 100 MG in Sodium Chloride 0.9% 100 ML IVPB SCH (00:32)
[2022-02-09] MEDS: Sodium Chloride 0.9% 1,000 ML IV SCH ×3 (03:05→23:42)
[2022-02-09 04:31] LABS: #Monocytes 0.4 10x3/uL (0.0-1.1); #Neutrophils 3.4 10x3/uL (1.5-8.4); %Basophils 0.5 % (0.0-2.0); %Eosinophils 0.7 % (0.0-6.0); %Lymphocytes 32.5 % (18.0-47.0); %Monocytes 7.2 % (0.0-10.0); %Neutrophils 58.8 % (40.0-75.0); Hemoglobin 8.8 g/dL (13.5-17.5); Mean Corpuscular HGB CONC 33.8 g/dL (32.0-36.0); Mean Corpuscular Hemoglobin 29.4 pg (27.0-33.0); Mean Platelet Volume 10.7 fl (7.4-10.4); Platelet Count 314 10x3/uL (150-450); RBC Distribution Width 15.7 % (11.5-14.5); Red Blood Cell (RBC) Count 2.99 10x6/uL (4.32-5.72); White Blood Cell (WBC) Count 5.7 10x3/uL (3.5-10.5)
[2022-02-09 04:43] LABS: ALT (SGPT) 24 U/L (8-55); AST (SGOT) 72 U/L (5-34); Albumin 2.6 g/dL (3.4-4.8); Alkaline Phosphatase 162 U/L (40-110); Anion Gap 11 mmol/L (10-20); BUN (Urea Nitrogen) 7 mg/dL (8.4-25.7); Bilirubin, Total 0.4 mg/dL (0.2-1.2); Calc. Creatinine Clearance 95 mL/min (70-130); Carbon Dioxide 22 mmol/L (23-31); Chloride 107 mmol/L (98-107); Estimated GFR 108; Globulin 3.4 g/dL (2.4-3.5); Glucose 116 mg/dL (80-115); Magnesium 1.7 mg/dL (1.6-2.6); Potassium 3.7 mmol/L (3.5-5.1); Sodium 136 mmol/L (136-145)
[2022-02-09] MEDS: Acetaminophen 325 MG TAB PO PRN ×2 (05:06→21:38)
[2022-02-09] MEDS: Famotidine 20 MG TAB PO SCH ×2 (05:08→21:38)
[2022-02-09] MEDS: Aspirin 81 mg Enteric Coated Tablet PO SCH (08:11)
[2022-02-09] MEDS: Senokot S 8.6-50 MG TAB PO SCH ×2 (08:11→22:45)
[2022-02-09] MEDS: Heparin 5,000 UNITS/ML VIAL SC SCH ×2 (08:11→21:40)
[2022-02-09] MEDS: Polyethylene Glycol 3350 17 GM Packet PO SCH ×2 (08:11→22:45)
[2022-02-09] MEDS: Cefepime 2 GM in Sodium Chloride 0.9% 100 ML IVPB SCH ×2 (11:51→23:36)
[2022-02-09] MEDS ORDERED: HYDROmorphone 0.5 MG/0.5 ML SYRINGE ONE (11:58)
[2022-02-09] MEDS ORDERED: Famotidine/PF 20 mg/2ml Vial ONE (12:00)
[2022-02-09] MEDS ORDERED: Ondansetron PF 4 MG/2 ML Vial ONE (12:04)
[2022-02-09] MEDS ORDERED: Lidocaine 2% PF 5 ML VIAL ONE (12:04)
[2022-02-09] MEDS ORDERED: PROPOFOL 20 ML ONE (12:04)
[2022-02-09] MEDS ORDERED: PHENYLEPHRINE-NS 100 MCG/ML 10 ML SYRINGE ONE ×2 (12:04→12:59)
[2022-02-09] MEDS ORDERED: Metoclopramide HCl 10 MG/2 ML VIAL ONE (12:04)
[2022-02-09] MEDS ORDERED: ePHEDrine Sulfate 50 MG/10 ML VIAL ONE (12:24)
[2022-02-09] MEDS ORDERED: Fentanyl 100 MCG/2 ML VIAL ONE ×2 (12:42→13:59)
[2022-02-09] MEDS: Nicotine 14 MG PATCH TD SCH (14:42)
[2022-02-09] MEDS ORDERED: HYDROcodone/Acetaminophen 5/325 mg Tablet PO PRN (20:14)
[2022-02-09] MEDS ORDERED: HYDROmorphone 0.5 MG/0.5 ML SYRINGE SLOW IVP SCH (20:15)
[2022-02-09] MEDS: Atorvastatin Calcium 40 MG TAB PO SCH (21:39)
[2022-02-09] MEDS: Lantus 1000 UNITS/10 ML VIAL SC SCH (22:46)
[2022-02-10] MEDS: Micafungin 100 MG in Sodium Chloride 0.9% 100 ML IVPB SCH (01:18)
[2022-02-10] MEDS: Morphine 2 MG/ML VIAL SLOW IVP PRN ×2 (05:00→10:14)
[2022-02-10 05:45] LABS: #Monocytes 0.4 10x3/uL (0.0-1.1); #Neutrophils 3.8 10x3/uL (1.5-8.4); %Basophils 0.3 % (0.0-2.0); %Eosinophils 0.1 % (0.0-6.0); %Monocytes 5.4 % (0.0-10.0); %Neutrophils 57.5 % (40.0-75.0); Hemoglobin 7.8 g/dL (13.5-17.5); Mean Corpuscular HGB CONC 32.2 g/dL (32.0-36.0); Mean Corpuscular Hemoglobin 28.6 pg (27.0-33.0); Mean Corpuscular Volume 88.6 fl (81.2-95.1); Mean Platelet Volume 10.3 fl (7.4-10.4); Platelet Count 276 10x3/uL (150-450); RBC Distribution Width 15.6 % (11.5-14.5); Red Blood Cell (RBC) Count 2.73 10x6/uL (4.32-5.72); White Blood Cell (WBC) Count 6.7 10x3/uL (3.5-10.5)
[2022-02-10 05:59] LABS: ALT (SGPT) 27 U/L (8-55); AST (SGOT) 79 U/L (5-34); Albumin 2.4 g/dL (3.4-4.8); Alkaline Phosphatase 167 U/L (40-110); Anion Gap 10 mmol/L (10-20); BUN (Urea Nitrogen) 7 mg/dL (8.4-25.7); Bilirubin, Total 0.4 mg/dL (0.2-1.2); Calc. Creatinine Clearance 95 mL/min (70-130); Calcium 7.7 mg/dL (7.8-10.44); Carbon Dioxide 22 mmol/L (23-31); Chloride 108 mmol/L (98-107); Estimated GFR 108; Glucose 101 mg/dL (80-115); Magnesium 1.7 mg/dL (1.6-2.6); Potassium 3.5 mmol/L (3.5-5.1); Protein, Total 5.4 g/dL (5.8-8.1); Sodium 136 mmol/L (136-145)
[2022-02-10] MEDS: Cefepime 2 GM in Sodium Chloride 0.9% 100 ML IVPB SCH (10:16)
[2022-02-10] MEDS: Aspirin 81 mg Enteric Coated Tablet PO SCH (10:19)
[2022-02-10] MEDS: Famotidine 20 MG TAB PO SCH ×2 (10:19→21:24)
[2022-02-10] MEDS: Senokot S 8.6-50 MG TAB PO SCH ×2 (10:19→22:47)
[2022-02-10] MEDS: Heparin 5,000 UNITS/ML VIAL SC SCH ×2 (10:20→21:25)
[2022-02-10] MEDS: Sodium Chloride 0.9% 1,000 ML IV SCH ×2 (10:58→17:36)
[2022-02-10] MEDS: HYDROcodone/Acetaminophen 10/325 mg Tablet PO PRN (13:03)
[2022-02-10 13:21] LABS: Hemoglobin 7.9 g/dL (13.5-17.5)
[2022-02-10] MEDS: Nicotine 14 MG PATCH TD SCH (16:07)
[2022-02-10] MEDS: Polyethylene Glycol 3350 17 GM Packet PO SCH ×2 (16:07→22:46)
[2022-02-10] MEDS: Acetaminophen 325 MG TAB PO PRN (17:36)
[2022-02-10] MEDS: Ondansetron ODT 4 MG TAB PO PRN (18:25)
[2022-02-10] MEDS: Atorvastatin Calcium 40 MG TAB PO SCH (21:25)
[2022-02-10] MEDS: Tamsulosin HCl 0.4 MG CAP PO SCH (21:56)
[2022-02-10] MEDS: Lantus 1000 UNITS/10 ML VIAL SC SCH (22:45)
[2022-02-11] MEDS: Micafungin 100 MG in Sodium Chloride 0.9% 100 ML IVPB SCH (01:23)
[2022-02-11] MEDS: HYDROcodone/Acetaminophen 7.5/325 mg Tablet PO PRN ×4 (01:42→21:27)
[2022-02-11 05:27] LABS: Hemoglobin 8.8 g/dL (13.5-17.5); Mean Corpuscular HGB CONC 33.5 g/dL (32.0-36.0); Mean Corpuscular Hemoglobin 29.2 pg (27.0-33.0); Mean Corpuscular Volume 87.4 fl (81.2-95.1); Mean Platelet Volume 10.6 fl (7.4-10.4); Platelet Count 282 10x3/uL (150-450); RBC Distribution Width 15.5 % (11.5-14.5); Red Blood Cell (RBC) Count 3.01 10x6/uL (4.32-5.72); White Blood Cell (WBC) Count 7.6 10x3/uL (3.5-10.5)
[2022-02-11] MEDS: Heparin 5,000 UNITS/ML VIAL SC SCH ×2 (09:28→21:12)
[2022-02-11] MEDS: Amlodipine 5 MG TAB PO SCH (09:29)
[2022-02-11] MEDS: Polyethylene Glycol 3350 17 GM Packet PO SCH ×3 (09:29→21:15)
[2022-02-11] MEDS: Senokot S 8.6-50 MG TAB PO SCH ×3 (09:30→21:14)
[2022-02-11] MEDS: Sodium Chloride 0.9% 1,000 ML IV SCH ×2 (09:30→17:22)
[2022-02-11] MEDS: Aspirin 81 mg Enteric Coated Tablet PO SCH (09:31)
[2022-02-11] MEDS: Famotidine 20 MG TAB PO SCH ×2 (09:31→21:13)
[2022-02-11] MEDS: Acetaminophen 325 MG TAB PO PRN (15:31)
[2022-02-11] MEDS: Nicotine 14 MG PATCH TD SCH (17:22)
[2022-02-11] MEDS: Atorvastatin Calcium 40 MG TAB PO SCH (21:14)
[2022-02-11] MEDS: Lantus 1000 UNITS/10 ML VIAL SC SCH (21:14)
[2022-02-11] MEDS: Tamsulosin HCl 0.4 MG CAP PO SCH (21:14)
[2022-02-12] MEDS: Micafungin 100 MG in Sodium Chloride 0.9% 100 ML IVPB SCH (00:12)
[2022-02-12] MEDS: Acetaminophen 325 MG TAB PO PRN ×2 (02:21→20:55)
[2022-02-12] MEDS: Morphine 2 MG/ML VIAL SLOW IVP PRN ×3 (02:53→20:50)
[2022-02-12] MEDS: Sodium Chloride 0.9% 1,000 ML IV SCH ×2 (03:00→09:20)
[2022-02-12] MEDS: HYDROcodone/Acetaminophen 7.5/325 mg Tablet PO PRN (06:24)
[2022-02-12] MEDS: HYDROcodone/Acetaminophen 10/325 mg Tablet PO PRN (09:20)
[2022-02-12] MEDS: Heparin 5,000 UNITS/ML VIAL SC SCH ×2 (09:21→20:54)
[2022-02-12] MEDS: Polyethylene Glycol 3350 17 GM Packet PO SCH ×2 (09:21→20:54)
[2022-02-12] MEDS: Amlodipine 5 MG TAB PO SCH (09:21)
[2022-02-12] MEDS: Senokot S 8.6-50 MG TAB PO SCH ×2 (09:21→20:55)
[2022-02-12] MEDS: Aspirin 81 mg Enteric Coated Tablet PO SCH (09:21)
[2022-02-12] MEDS: Famotidine 20 MG TAB PO SCH ×2 (09:21→20:53)
[2022-02-12] MEDS: Nicotine 14 MG PATCH TD SCH (14:47)
[2022-02-12] MEDS: Atorvastatin Calcium 40 MG TAB PO SCH (20:53)
[2022-02-12] MEDS: Tamsulosin HCl 0.4 MG CAP PO SCH (20:53)
[2022-02-12] MEDS: Lantus 1000 UNITS/10 ML VIAL SC SCH (20:55)
[2022-02-13] MEDS: HYDROcodone/Acetaminophen 10/325 mg Tablet PO PRN ×2 (00:12→08:58)
[2022-02-13] MEDS: Micafungin 100 MG in Sodium Chloride 0.9% 100 ML IVPB SCH (00:17)
[2022-02-13] MEDS ORDERED: Morphine 4 MG/ML VIAL SLOW IVP PRN (00:45)
[2022-02-13] MEDS ORDERED: Morphine 4 MG/ML VIAL SLOW IVP SCH (01:30)
[2022-02-13 04:48] LABS: Anion Gap 12 mmol/L (10-20); BUN (Urea Nitrogen) 5 mg/dL (8.4-25.7); Calc. Creatinine Clearance 126 mL/min (70-130); Calcium 7.7 mg/dL (7.8-10.44); Carbon Dioxide 21 mmol/L (23-31); Chloride 108 mmol/L (98-107); Estimated GFR 118; Glucose 95 mg/dL (80-115); Sodium 138 mmol/L (136-145)
[2022-02-13 04:50] LABS: Hemoglobin 7.8 g/dL (13.5-17.5); Mean Corpuscular HGB CONC 34.8 g/dL (32.0-36.0); Mean Corpuscular Hemoglobin 29.7 pg (27.0-33.0); Mean Corpuscular Volume 85.2 fl (81.2-95.1); Mean Platelet Volume 10.4 fl (7.4-10.4); Platelet Count 281 10x3/uL (150-450); RBC Distribution Width 16.4 % (11.5-14.5); Red Blood Cell (RBC) Count 2.63 10x6/uL (4.32-5.72); White Blood Cell (WBC) Count 9.3 10x3/uL (3.5-10.5)
[2022-02-13 04:51] LABS: Potassium 2.8 mmol/L (3.5-5.1)
[2022-02-13] MEDS: Sodium Chloride 0.9% 1,000 ML IV SCH ×3 (05:17→16:04)
[2022-02-13] MEDS: HYDROcodone/Acetaminophen 7.5/325 mg Tablet PO PRN (05:21)
[2022-02-13] MEDS ORDERED: Electrolyte Replacement Protocol 1 EACH FS PRN (05:45)
[2022-02-13 06:06] LABS: Magnesium 1.8 mg/dL (1.6-2.6)
[2022-02-13] MEDS: Potassium Chloride 20 MEQ TAB PO SCH ×2 (06:23→08:58)
[2022-02-13] MEDS ORDERED: Magnesium 2 GM/50 ML(in water) 2 GM in Premix Bag 1 BAG IVPB SCH (06:30)
[2022-02-13] MEDS ORDERED: Potassium Chloride 20 MEQ in Premix Bag 1 BAG IVPB SCH (08:15)
[2022-02-13] MEDS: Aspirin 81 mg Enteric Coated Tablet PO SCH (08:58)
[2022-02-13] MEDS: Amlodipine 5 MG TAB PO SCH (08:58)
[2022-02-13] MEDS: Senokot S 8.6-50 MG TAB PO SCH ×2 (08:59→21:49)
[2022-02-13] MEDS: Famotidine 20 MG TAB PO SCH ×2 (08:59→21:48)
[2022-02-13] MEDS: Polyethylene Glycol 3350 17 GM Packet PO SCH ×2 (08:59→21:50)
[2022-02-13] MEDS: Heparin 5,000 UNITS/ML VIAL SC SCH ×2 (08:59→21:48)
[2022-02-13 10:14] LABS: Yeast Identification Final report (.)
[2022-02-13] MEDS: Nicotine 14 MG PATCH TD SCH (12:19)
[2022-02-13] MEDS: Fluconazole In NaCl,Iso-Osm 400 MG in Premix Bag 1 BAG IVPB SCH ×2 (12:19→14:20)
[2022-02-13 15:55] LABS: ALT (SGPT) 14 U/L (8-55); AST (SGOT) 31 U/L (5-34); Albumin 2.3 g/dL (3.4-4.8); Alkaline Phosphatase 165 U/L (40-110); Anion Gap 11 mmol/L (10-20); BUN (Urea Nitrogen) 5 mg/dL (8.4-25.7); Bilirubin, Total 0.5 mg/dL (0.2-1.2); Calc. Creatinine Clearance 126 mL/min (70-130); Calcium 7.8 mg/dL (7.8-10.44); Carbon Dioxide 21 mmol/L (23-31); Chloride 107 mmol/L (98-107); Estimated GFR 118; Globulin 3.1 g/dL (2.4-3.5); Glucose 101 mg/dL (80-115); Potassium 3.8 mmol/L (3.5-5.1); Protein, Total 5.4 g/dL (5.8-8.1); Sodium 135 mmol/L (136-145)
[2022-02-13] MEDS: Tamsulosin HCl 0.4 MG CAP PO SCH (21:48)
[2022-02-13] MEDS: Atorvastatin Calcium 40 MG TAB PO SCH (21:49)
[2022-02-13] MEDS: Lantus 1000 UNITS/10 ML VIAL SC SCH (21:49)
[2022-02-14] MEDS: Acetaminophen 325 MG TAB PO PRN ×2 (00:06→23:36)
[2022-02-14] MEDS: HYDROcodone/Acetaminophen 7.5/325 mg Tablet PO PRN ×2 (04:20→21:37)
[2022-02-14 05:17] LABS: Hemoglobin 7.1 g/dL (13.5-17.5); Mean Corpuscular HGB CONC 33.3 g/dL (32.0-36.0); Mean Corpuscular Hemoglobin 29.2 pg (27.0-33.0); Mean Corpuscular Volume 87.7 fl (81.2-95.1); Mean Platelet Volume 10.1 fl (7.4-10.4); Platelet Count 301 10x3/uL (150-450); RBC Distribution Width 16.8 % (11.5-14.5); Red Blood Cell (RBC) Count 2.43 10x6/uL (4.32-5.72); White Blood Cell (WBC) Count 10.3 10x3/uL (3.5-10.5)
[2022-02-14 05:21] LABS: Anion Gap 11 mmol/L (10-20); BUN (Urea Nitrogen) 4 mg/dL (8.4-25.7); Calc. Creatinine Clearance 132 mL/min (70-130); Calcium 7.6 mg/dL (7.8-10.44); Carbon Dioxide 21 mmol/L (23-31); Chloride 108 mmol/L (98-107); Estimated GFR 119; Glucose 89 mg/dL (80-115); Potassium 3.6 mmol/L (3.5-5.1); Sodium 136 mmol/L (136-145)
[2022-02-14] MEDS: Sodium Chloride 0.9% 1,000 ML IV SCH ×2 (07:26→14:27)
[2022-02-14] MEDS ORDERED: Fluconazole 100 MG TAB PO SCH (09:00)
[2022-02-14] MEDS: Amlodipine 5 MG TAB PO SCH (09:38)
[2022-02-14] MEDS: Heparin 5,000 UNITS/ML VIAL SC SCH ×2 (09:38→21:38)
[2022-02-14] MEDS: Aspirin 81 mg Enteric Coated Tablet PO SCH (09:38)
[2022-02-14] MEDS: Famotidine 20 MG TAB PO SCH ×2 (09:38→21:37)
[2022-02-14] MEDS: Senokot S 8.6-50 MG TAB PO SCH ×2 (09:39→21:39)
[2022-02-14] MEDS: Polyethylene Glycol 3350 17 GM Packet PO SCH ×2 (09:39→21:39)
[2022-02-14] MEDS ORDERED: Piperacillin/Tazobactam 3.375 GM in Sodium Chloride 0.9% 100 ML IVPB SCH ×2 (13:00→17:00)
[2022-02-14] MEDS ORDERED: Piperacillin/Tazobactam 4.5 GM in Sodium Chloride 0.9% 100 ML IVPB SCH (14:00)
[2022-02-14] MEDS: Nicotine 14 MG PATCH TD SCH (15:17)
[2022-02-14] MEDS: Atorvastatin Calcium 40 MG TAB PO SCH (21:37)
[2022-02-14] MEDS: Lantus 1000 UNITS/10 ML VIAL SC SCH (21:39)
[2022-02-14] MEDS: Tamsulosin HCl 0.4 MG CAP PO SCH (21:39)
[2022-02-15 00:27] LABS: #Eosinphils 0.1 10x3/uL (0.0-0.5); #Monocytes 0.5 10x3/uL (0.0-1.1); #Neutrophils 9.5 10x3/uL (1.5-8.4); %Basophils 0.1 % (0.0-2.0); %Eosinophils 0.7 % (0.0-6.0); %Lymphocytes 16.3 % (18.0-47.0); %Monocytes 4.1 % (0.0-10.0); %Neutrophils 78.5 % (40.0-75.0); Mean Corpuscular Hemoglobin 29.2 pg (27.0-33.0); Mean Corpuscular Volume 88.3 fl (81.2-95.1); Platelet Count 342 10x3/uL (150-450); RBC Distribution Width 16.6 % (11.5-14.5); White Blood Cell (WBC) Count 12.1 10x3/uL (3.5-10.5)
[2022-02-15] MEDS ORDERED: Ketorolac Tromethamine 30 MG/ML VIAL IVP SCH (00:45)
[2022-02-15 00:47] LABS: Lactic Acid 0.6 mmol/L (0.5-2.2)
[2022-02-15] MEDS: Piperacillin/Tazobactam 3.375 GM in Sodium Chloride 0.9% 100 ML IVPB SCH ×3 (01:21→17:47)
[2022-02-15] MEDS ORDERED: Fluconazole 100 MG TAB PO SCH (02:00)
[2022-02-15] MEDS: Dextrose 5 % And 0.9 % NaCl 1,000 ML IV SCH ×3 (02:24→23:05)
[2022-02-15] MEDS: Vancomycin HCl 1 GM in Sodium Chloride 0.9% 250 ML 250 ML IVPB SCH ×2 (02:24→16:26)
[2022-02-15] MEDS: Sodium Chloride 0.9% 1,000 ML IV SCH (02:34)
[2022-02-15 03:59] LABS: Bilirubin Neg (Negative); Blood, Urine 10 (Negative); Clarity Clear (Clear); Glucose, Urine (Dipstick) Normal (Negative); Ketone, Urine 50 mg/dL (Negative); Leukocyte 25 (Negative); Nitrite Negative (Negative); Protein, Urine (Dipstick) 30 mg/dl (Neg-Trace); Specific Gravity, Urine 1.015 (1.002-1.036); Urobilinogen Normal mg/dL (Less than 2)
[2022-02-15 04:06] LABS: Urine Culture Reflex No No
[2022-02-15 04:08] LABS: Bacteria/HPF 1+ HPF (None Seen); RBC/HPF 0-3 HPF (0-3); Squamous Epithelial 0-3 HPF (0-3); Yeast-Budding 2+ HPF (None Seen)
[2022-02-15 04:20] LABS: Hemoglobin 7.2 g/dL (13.5-17.5); Mean Corpuscular HGB CONC 33.5 g/dL (32.0-36.0); Mean Corpuscular Volume 86.7 fl (81.2-95.1); Mean Platelet Volume 9.9 fl (7.4-10.4); Platelet Count 336 10x3/uL (150-450); RBC Distribution Width 16.7 % (11.5-14.5); Red Blood Cell (RBC) Count 2.48 10x6/uL (4.32-5.72); White Blood Cell (WBC) Count 11.5 10x3/uL (3.5-10.5)
[2022-02-15 04:36] LABS: Anion Gap 13 mmol/L (10-20); BUN (Urea Nitrogen) 5 mg/dL (8.4-25.7); Calc. Creatinine Clearance 123 mL/min (70-130); Calcium 7.8 mg/dL (7.8-10.44); Carbon Dioxide 19 mmol/L (23-31); Chloride 110 mmol/L (98-107); Estimated GFR 117; Glucose 78 mg/dL (80-115); Sodium 139 mmol/L (136-145)
[2022-02-15] MEDS ORDERED: Potassium Chloride 20 MEQ TAB PO SCH ×2 (05:00→07:45)
[2022-02-15] MEDS ORDERED: Potassium Chloride 20 MEQ in Premix Bag 1 BAG IVPB SCH (08:00)
[2022-02-15] MEDS: Amlodipine 5 MG TAB PO SCH (09:23)
[2022-02-15] MEDS: Aspirin 81 mg Enteric Coated Tablet PO SCH (09:24)
[2022-02-15] MEDS: Famotidine 20 MG TAB PO SCH ×2 (09:24→20:11)
[2022-02-15] MEDS: Senokot S 8.6-50 MG TAB PO SCH ×2 (09:24→20:11)
[2022-02-15] MEDS: Heparin 5,000 UNITS/ML VIAL SC SCH ×2 (09:24→20:11)
[2022-02-15] MEDS: Polyethylene Glycol 3350 17 GM Packet PO SCH ×2 (09:24→20:11)
[2022-02-15] MEDS ORDERED: Bupivacaine 0.25% HCL 30 ML VIAL ONE (10:50)
[2022-02-15] MEDS ORDERED: EPINEPHrine 1 MG/ML AMP ONE (10:50)
[2022-02-15] MEDS ORDERED: HYDROmorphone 0.5 MG/0.5 ML SYRINGE ONE (13:30)
[2022-02-15] MEDS ORDERED: Lidocaine 2% PF 5 ML VIAL ONE (13:31)
[2022-02-15] MEDS ORDERED: Ketorolac Tromethamine 30 MG/ML VIAL ONE (13:32)
[2022-02-15] MEDS ORDERED: Glycopyrrolate 0.2 MG/ML 5 ML SYRINGE ONE (13:32)
[2022-02-15] MEDS ORDERED: Midazolam HCl 2 mg/2 ml Vial ONE (13:32)
[2022-02-15] MEDS ORDERED: Fentanyl 100 MCG/2 ML VIAL ONE (13:32)
[2022-02-15] MEDS ORDERED: PROPOFOL 20 ML ONE (13:32)
[2022-02-15] MEDS ORDERED: Rocuronium Bromide 10 MG/ML (10ML VIAL) ONE (13:32)
[2022-02-15] MEDS ORDERED: Dexamethasone 20 MG/5 ML VIAL ONE (13:32)
[2022-02-15] MEDS ORDERED: Ondansetron PF 4 MG/2 ML Vial ONE (13:32)
[2022-02-15] MEDS ORDERED: PHENYLEPHRINE-NS 100 MCG/ML 10 ML SYRINGE ONE (13:46)
[2022-02-15] MEDS ORDERED: ePHEDrine Sulfate 50 MG/10 ML VIAL ONE (13:46)
[2022-02-15] MEDS ORDERED: Labetalol HCl 100 MG/20 ML VIAL ONE (14:20)
[2022-02-15] MEDS ORDERED: Calcium Chloride 1 GM/10 ML Abboject SYRINGE ONE (14:55)
[2022-02-15] MEDS: Nicotine 14 MG PATCH TD SCH (16:25)
[2022-02-15] MEDS ORDERED: Piperacillin/Tazobactam 3.375 GM VIAL ONE (17:50)
[2022-02-15] MEDS: Atorvastatin Calcium 40 MG TAB PO SCH (20:11)
[2022-02-15] MEDS: Tamsulosin HCl 0.4 MG CAP PO SCH (20:11)
[2022-02-15] MEDS: Dextrose 5% in Water 1,000 ML IV PRN (23:04)
[2022-02-15] MEDS: Lantus 1000 UNITS/10 ML VIAL SC SCH (23:05)
[2022-02-16] MEDS: Senokot S 8.6-50 MG TAB PO SCH ×3 (00:12→21:23)
[2022-02-16] MEDS: Polyethylene Glycol 3350 17 GM Packet PO SCH ×3 (00:12→21:23)
[2022-02-16 01:13] LABS: Vancomycin, Trough 9.3 ug/mL
[2022-02-16] MEDS: Vancomycin HCl 1 GM in Sodium Chloride 0.9% 250 ML 250 ML IVPB SCH (01:45)
[2022-02-16] MEDS: Piperacillin/Tazobactam 3.375 GM in Sodium Chloride 0.9% 100 ML IVPB SCH ×3 (03:31→18:16)
[2022-02-16 05:24] LABS: Hemoglobin 7.3 g/dL (13.5-17.5); Mean Corpuscular HGB CONC 32.6 g/dL (32.0-36.0); Mean Corpuscular Hemoglobin 28.9 pg (27.0-33.0); Mean Corpuscular Volume 88.5 fl (81.2-95.1); Mean Platelet Volume 9.9 fl (7.4-10.4); Platelet Count 406 10x3/uL (150-450); RBC Distribution Width 16.4 % (11.5-14.5); Red Blood Cell (RBC) Count 2.53 10x6/uL (4.32-5.72); White Blood Cell (WBC) Count 7.6 10x3/uL (3.5-10.5)
[2022-02-16 05:30] LABS: Anion Gap 11 mmol/L (10-20); BUN (Urea Nitrogen) 6 mg/dL (8.4-25.7); Calc. Creatinine Clearance 98 mL/min (70-130); Calcium 8.3 mg/dL (7.8-10.44); Carbon Dioxide 21 mmol/L (23-31); Chloride 110 mmol/L (98-107); Estimated GFR 109; Glucose 228 mg/dL (80-115); Potassium 3.9 mmol/L (3.5-5.1); Sodium 138 mmol/L (136-145)
[2022-02-16] MEDS: Dextrose 5% in Water 1,000 ML IV PRN (08:37)
[2022-02-16] MEDS: Fluconazole 100 MG TAB PO SCH (08:38)
[2022-02-16] MEDS: Aspirin 81 mg Enteric Coated Tablet PO SCH (08:38)
[2022-02-16] MEDS: Famotidine 20 MG TAB PO SCH ×2 (08:38→21:22)
[2022-02-16] MEDS: Amlodipine 5 MG TAB PO SCH (08:38)
[2022-02-16] MEDS: Dextrose 5 % And 0.9 % NaCl 1,000 ML IV SCH ×2 (08:38→18:00)
[2022-02-16] MEDS: Heparin 5,000 UNITS/ML VIAL SC SCH ×2 (08:39→21:23)
[2022-02-16] MEDS: Morphine 2 MG/ML VIAL SLOW IVP PRN (11:37)
[2022-02-16] MEDS: HumaLOG 300 UNITS/3 ML VIAL SC PRN ×2 (11:38→16:51)
[2022-02-16] MEDS: Nicotine 14 MG PATCH TD SCH (12:32)
[2022-02-16] MEDS: HYDROcodone/Acetaminophen 7.5/325 mg Tablet PO PRN (16:51)
[2022-02-16] MEDS ORDERED: Piperacillin/Tazobactam 3.375 GM VIAL ONE (18:20)
[2022-02-16] MEDS: Tamsulosin HCl 0.4 MG CAP PO SCH (21:22)
[2022-02-16] MEDS: Atorvastatin Calcium 40 MG TAB PO SCH (21:22)
[2022-02-16] MEDS: Lantus 1000 UNITS/10 ML VIAL SC SCH (21:23)
[2022-02-17] MEDS: Piperacillin/Tazobactam 3.375 GM in Sodium Chloride 0.9% 100 ML IVPB SCH ×3 (01:35→17:30)
[2022-02-17] MEDS: Dextrose 5 % And 0.9 % NaCl 1,000 ML IV SCH ×3 (08:52→23:00)
[2022-02-17] MEDS: HYDROcodone/Acetaminophen 7.5/325 mg Tablet PO PRN ×2 (10:12→23:32)
[2022-02-17] MEDS: Fluconazole 100 MG TAB PO SCH (10:12)
[2022-02-17] MEDS: Heparin 5,000 UNITS/ML VIAL SC SCH ×2 (10:13→22:19)
[2022-02-17] MEDS: Famotidine 20 MG TAB PO SCH ×2 (10:13→22:18)
[2022-02-17] MEDS: Senokot S 8.6-50 MG TAB PO SCH ×3 (10:13→22:46)
[2022-02-17] MEDS: Amlodipine 5 MG TAB PO SCH (10:13)
[2022-02-17] MEDS: Polyethylene Glycol 3350 17 GM Packet PO SCH ×2 (10:13→22:44)
[2022-02-17] MEDS: Aspirin 81 mg Enteric Coated Tablet PO SCH (10:13)
[2022-02-17] MEDS: Morphine 2 MG/ML VIAL SLOW IVP PRN (13:00)
[2022-02-17] MEDS: Nicotine 14 MG PATCH TD SCH (14:18)
[2022-02-17] MEDS: Tamsulosin HCl 0.4 MG CAP PO SCH (22:18)
[2022-02-17] MEDS: Lantus 1000 UNITS/10 ML VIAL SC SCH ×2 (22:21→22:45)
[2022-02-17] MEDS: Atorvastatin Calcium 40 MG TAB PO SCH (22:24)
[2022-02-18] MEDS: Lantus 1000 UNITS/10 ML VIAL SC SCH
[2022-02-18] MEDS: Piperacillin/Tazobactam 3.375 GM in Sodium Chloride 0.9% 100 ML IVPB SCH ×3 (01:28→17:22)
[2022-02-18] MEDS: Fluconazole 100 MG TAB PO SCH (08:13)
[2022-02-18] MEDS: Famotidine 20 MG TAB PO SCH ×2 (08:13→21:47)
[2022-02-18] MEDS: Aspirin 81 mg Enteric Coated Tablet PO SCH (08:13)
[2022-02-18] MEDS: HYDROcodone/Acetaminophen 10/325 mg Tablet PO PRN ×2 (08:14→12:23)
[2022-02-18] MEDS: Senokot S 8.6-50 MG TAB PO SCH (08:14)
[2022-02-18] MEDS: Amlodipine 5 MG TAB PO SCH (08:14)
[2022-02-18] MEDS: Polyethylene Glycol 3350 17 GM Packet PO SCH (08:14)
[2022-02-18] MEDS: Heparin 5,000 UNITS/ML VIAL SC SCH ×2 (08:14→21:55)
[2022-02-18] MEDS: Morphine 2 MG/ML VIAL SLOW IVP PRN ×2 (09:09→15:11)
[2022-02-18] MEDS: Dextrose 5 % And 0.9 % NaCl 1,000 ML IV SCH (09:14)
[2022-02-18] MEDS: Nicotine 14 MG PATCH TD SCH (13:27)
[2022-02-18] MEDS: Tamsulosin HCl 0.4 MG CAP PO SCH (21:46)
[2022-02-18] MEDS: Atorvastatin Calcium 40 MG TAB PO SCH (21:46)
[2022-02-19] MEDS: Polyethylene Glycol 3350 17 GM Packet PO SCH ×2 (00:24→11:47)
[2022-02-19] MEDS: Senokot S 8.6-50 MG TAB PO SCH ×2 (00:24→11:53)
[2022-02-19] MEDS: Dextrose 5 % And 0.9 % NaCl 1,000 ML IV SCH ×3 (00:31→16:00)
[2022-02-19] MEDS: HYDROcodone/Acetaminophen 10/325 mg Tablet PO PRN ×3 (00:31→17:17)
[2022-02-19] MEDS: Piperacillin/Tazobactam 3.375 GM in Sodium Chloride 0.9% 100 ML IVPB SCH ×2 (01:25→11:53)
[2022-02-19 10:01] LABS: #Eosinphils 0.3 10x3/uL (0.0-0.5); #Monocytes 0.3 10x3/uL (0.0-1.1); #Neutrophils 4.5 10x3/uL (1.5-8.4); %Basophils 0.3 % (0.0-2.0); %Eosinophils 3.8 % (0.0-6.0); %Lymphocytes 32.2 % (18.0-47.0); %Monocytes 3.8 % (0.0-10.0); %Neutrophils 59.5 % (40.0-75.0); Hemoglobin 7.9 g/dL (13.5-17.5); Mean Corpuscular HGB CONC 32.8 g/dL (32.0-36.0); Mean Corpuscular Hemoglobin 29.3 pg (27.0-33.0); Mean Corpuscular Volume 89.3 fl (81.2-95.1); Mean Platelet Volume 9.8 fl (7.4-10.4); Platelet Count 499 10x3/uL (150-450); RBC Distribution Width 16.8 % (11.5-14.5); White Blood Cell (WBC) Count 7.5 10x3/uL (3.5-10.5)
[2022-02-19 10:13] LABS: ALT (SGPT) 25 U/L (8-55); AST (SGOT) 41 U/L (5-34); Albumin 2.4 g/dL (3.4-4.8); Alkaline Phosphatase 205 U/L (40-110); Anion Gap 10 mmol/L (10-20); BUN (Urea Nitrogen) 12 mg/dL (8.4-25.7); Bilirubin, Total 0.3 mg/dL (0.2-1.2); Calc. Creatinine Clearance 113 mL/min (70-130); Calcium 8.2 mg/dL (7.8-10.44); Carbon Dioxide 25 mmol/L (23-31); Chloride 111 mmol/L (98-107); Estimated GFR 114; Globulin 3.1 g/dL (2.4-3.5); Glucose 108 mg/dL (80-115); Potassium 3.1 mmol/L (3.5-5.1); Protein, Total 5.5 g/dL (5.8-8.1); Sodium 143 mmol/L (136-145)
[2022-02-19] MEDS ORDERED: Potassium Chloride 20 MEQ TAB PO SCH (10:30)
[2022-02-19] MEDS: Fluconazole 100 MG TAB PO SCH (11:46)
[2022-02-19] MEDS: Aspirin 81 mg Enteric Coated Tablet PO SCH (11:47)
[2022-02-19] MEDS: Amlodipine 5 MG TAB PO SCH (11:47)
[2022-02-19] MEDS: Famotidine 20 MG TAB PO SCH (11:47)
[2022-02-19] MEDS: Heparin 5,000 UNITS/ML VIAL SC SCH (11:48)
[2022-02-19] MEDS ORDERED: Iopamidol 300 61% 100 ML VIAL FS ONE (12:28)
[2022-02-19] MEDS: Nicotine 14 MG PATCH TD SCH (14:00)
[2022-02-19] MEDS ORDERED: Potassium Chloride 20 MEQ in Premix Bag 1 BAG IVPB SCH (16:30)
[2022-02-19 18:17] VITALS: BP 128/76; TEMP 98
== END 2022-02-19 18:00 | disposition home or self-care (01) | DRG 463 ==
LOC: CSHERS 09:00 → CSHTELE 13:02
PROVIDERS: ADMIT Internal Medicine; ATTEND Internal Medicine
PROC: 0JBP0ZZ Excision of Left Lower Leg Subcutaneous Tissue and Fascia, Open Approach (ICD-10-PCS; principal; 2022-01-30)
PROC: 0T9B70Z Drainage of Bladder with Drainage Device, Via Natural or Artificial Opening (ICD-10-PCS; 2022-02-02)
PROC: 0Y6J0Z3 Detachment at Left Lower Leg, Low, Open Approach (ICD-10-PCS; 2022-02-09)
PROC: 0FT44ZZ Resection of Gallbladder, Percutaneous Endoscopic Approach (ICD-10-PCS; 2022-02-15)
DX: T87.54 Necrosis of amputation stump, left lower extremity (principal); G93.41 Metabolic encephalopathy; U07.1 COVID-19; A41.89 Other specified sepsis; I50.20 Unspecified systolic (congestive) heart failure; K80.00 Calculus of gallbladder with acute cholecystitis without obstruction; I25.10 Atherosclerotic heart disease of native coronary artery without angina pectoris; E78.5 Hyperlipidemia, unspecified; Z20.822 Contact with and (suspected) exposure to COVID-19; K59.00 Constipation, unspecified; F17.210 Nicotine dependence, cigarettes, uncomplicated; E11.51 Type 2 diabetes mellitus with diabetic peripheral angiopathy without gangrene; I11.0 Hypertensive heart disease with heart failure; E11.65 Type 2 diabetes mellitus with hyperglycemia; Y83.8 Other surgical procedures as the cause of abnormal reaction of the patient, or of later complication, without mention of misadventure at the time of the procedure; R33.9 Retention of urine, unspecified; I95.2 Hypotension due to drugs; T50.905A Adverse effect of unspecified drugs, medicaments and biological substances, initial encounter; Z79.82 Long term (current) use of aspirin; Z79.899 Other long term (current) drug therapy; Z79.4 Long term (current) use of insulin; I25.2 Old myocardial infarction; Z95.5 Presence of coronary angioplasty implant and graft; Z89.512 Acquired absence of left leg below knee; Z98.890 Other specified postprocedural states
CPT/HCPCS: 36415; 36416; 51701; 70450; 71045; 71275; 74018; 74160; 74177; 76700; 78227; 80048; 80053; 80061; 80076; 80202; 81001; 81003; 81015; 82805; 83036; 83605; 83735; 83880; 84443; 84484; 85025; 85027; 85610; 85730; 86140; 86850; 86900; 86901; 87040; 87086; 87106; 87324; 87449; 88304; 93005; 93010; 93923; 96374; 96375; 97139; A9537; C1713; J0171; J0692; J1100; J1170; J1450; J1644; J1815; J1885; J2001; J2248; J2250; J2270; J2405; J2543; J2704; J2765; J3010; J3370; J3475; J3480; J3490; J7042; J7050; J7070; Q0162; Q9967; S0020; S0028; U0003; U0005